=== PATIENT | male | born 1990 | race Caucasian/White ===

== ENCOUNTER 2025-01-08 20:49 | Emergency (ER) | payer OTHER ==
[2025-01-08 20:55] VITALS: BP 116/57; PULSE 64; RESP 18; TEMP 98.6; BMI 23.6
[2025-01-08] MEDS ORDERED: ACETAMINOPHEN 325 MG TABLET (FP) ONE (21:42)
[2025-01-08] MEDS ORDERED: LIDOCAINE 4% PATCH TP ONE (21:42)
[2025-01-08] MEDS ORDERED: IBUPROFEN 400 MG TABLET (FP) PO ONE (21:43)
[2025-01-08] MEDS: ACETAMINOPHEN 325 MG TABLET (FP) PO ONE (21:45)
[2025-01-08] MEDS: LIDOCAINE 5% TOPICAL PATCH TP ONE (21:45)
[2025-01-08] MEDS: IBUPROFEN 600 MG TABLET (FP) PO ONE (21:45)
[2025-01-08] MEDS ORDERED: LIDOCAINE PATCH REMOVAL MC SCH (22:00)
== END 2025-01-08 21:55 | disposition home or self-care (01) ==
LOC: JERFT 20:49
DX: M54.50 Low back pain, unspecified (principal)
CPT/HCPCS: 99283-25